=== PATIENT | female | born 1960 | race Caucasian/White ===

== ENCOUNTER 2020-04-18 14:12 | Emergency (ER) | payer OTHER, SELFPAY ==
[~2020-04-18] VITALS: Ht 162.6 cm; Wt 81.6 kg
[~2020-04-18 14:12] MED LIST: FLO44 IH; FLUO-387 PO; GABA300C PO; IBUP-2213 PO; OMEP40EC24 PO; TRAZ-343 PO
--- NOTE | 2020-04-18 14:24 | NUR ---
PT TAKEN TO BED 9.
[2020-04-18 14:26] VITALS: BP 155/77
--- NOTE | 2020-04-18 14:55 | NUR ---
IMAGING AT BED SIDE.
--- NOTE | 2020-04-18 14:56 | NUR ---
59 Y/O F C/O CHEST PAIN AND PRESSURE THAT RADIATES TO L ARM. 7/10 SHARP PAIN ACCOMPANIED BY SOB, NO COUGH. WHEN WALKING, SHE STATES SHE FEELS EASILY FATIGUED. NO N&V. HAS SLIGHT HEADACHE. MED HX OF ASTHMA. NKA. TAKES ACETAMINOPHEN 500 MG 1 PM PRN AND SEVERE CONGESTION MEDS OCT RX. PT TESTED POSTIVE FOR COVID 3 WEEKS AGO.
--- NOTE | 2020-04-18 15:03 | NUR ---
RT AT BEDSIDE COLLECTING ABGS. SWABBED FOR INFLUENZA A & B ANTIGEN, SENT TO LAB.
[2020-04-18 15:06] LABS: BASOPHILS % (AUTO) 0.4 % (0.0-2.0); EOSINOPHILS # (AUTO) 0.1 K/uL (0-0.4); EOSINOPHILS % (AUTO) 1.1 % (0.0-4.0); HEMATOCRIT 40.2 % (36-48); HEMOGLOBIN 13.3 g/dL (12.0-16.0); LYMPHOCYTES # (AUTO) 1.8 K/uL (2.5-16.5); LYMPHOCYTES % (AUTO) 23.7 % (20.5-51.1); MEAN CORPUSCULAR HEMOGLOBIN 29 pg (27-31); MEAN CORPUSCULAR HGB CONC 33 g/dL (33-37); MEAN CORPUSCULAR VOLUME 87.7 fL (80-94); MONOCYTES # (AUTO) 0.8 K/uL (0.8-1.0); MONOCYTES % (AUTO) 9.7 % (1.7-9.3); NEUTROPHILS % (AUTO) 65.1 % (42.2-75.2); PLATELET COUNT (AUTO) 267 K/uL (140-450); RED BLOOD CELL COUNT(AUTO) 4.59 MIL/uL (4.20-5.40); WHITE BLOOD COUNT (AUTO) 7.7 K/uL (4.8-10.8)
[2020-04-18 15:20] LABS: C-REACTIVE PROTEIN QUANT 0.8 mg/dL (0.0-0.9)
[2020-04-18 15:25] LABS: ALBUMIN 3.7 g/dL (3.4-5.0); ANION GAP 13.3 (8-16); CARBON DIOXIDE 26.3 mmol/L (21-32); CREATININE 0.7 mg/dL (0.6-1.3); FIBRINOGEN 371 mg/dL (200-400); POTASSIUM 3.6 mmol/L (3.5-5.1); PROTHROMBIN TIME 9.7 secs (10.8-13.4); TOTAL BILIRUBIN 0.3 mg/dL (0.0-1.0)
[2020-04-18 15:26] LABS: LACTATE DEHYDROGENASE 188 U/L (81-234)
--- NOTE | 2020-04-18 15:32 | NUR ---
URINE COLLECTED VOID VIA BEDCOMMODE , SENT TO LAB.
[2020-04-18 15:46] LABS: APPEARANCE,URINE CLEAR (CLEAR); BILIRUBIN,URINE NEGATIVE (NEGATIVE); BLOOD, URINE NEGATIVE (NEGATIVE); COLOR,URINE ORANGE (YELLOW); LEUKOCYTE ESTERASE ,URINE NEGATIVE (NEGATIVE); NITRITE, URINE NEGATIVE (NEGATIVE); PH,URINE 6.5 (5.0-9.0); UGLUCOSE NEGATIVE (NEGATIVE)
[2020-04-18 16:00] LABS: D-DIMER < 100 ng/ml (0-400)
--- NOTE | 2020-04-18 19:11 | NUR ---
REPORT RECEIVED FROM LINDSEY RANDLE
[2020-04-18 20:20] VITALS: BP 113/72
--- NOTE | 2020-04-18 20:20 | NUR ---
Patient discharged with v/s stable. Written and verbal after care instructions given and explained. Patient verbalized understanding. Ambulatory with steady gait. All questions addressed prior to discharge. Advised to follow up with PMD.
== END 2020-04-18 20:20 | disposition home or self-care (01) ==
LOC: MED 14:12
DX: U07.1 COVID-19 (principal); R07.9 Chest pain, unspecified; J45.909 Unspecified asthma, uncomplicated; Z98.890 Other specified postprocedural states; Z79.899 Other long term (current) drug therapy
CPT/HCPCS: 36415; 71045; 80053; 81003; 82550; 82728; 83605; 83615; 83880; 84484; 85025; 85379; 85384; 85610; 85730; 86140; 87040; 87804; 93005; 99285

== ENCOUNTER 2022-12-16 10:43 | Observation (INO) | payer OTHER ==
[~2022-12-16] VITALS: Ht 162.6 cm; Wt 81.6 kg
[2022-12-16 10:54] VITALS: BP 134/80; PULSE 64; RESP 18; TEMP 98; O2SAT 98
[2022-12-16] MEDS ORDERED: MORPHINE SULFATE 4 MG/ML SYR IM ONE (12:50)
[2022-12-16 13:30] LABS: BASOPHILS % (AUTO) 0.6 % (0.0-2.0); EOSINOPHILS # (AUTO) 0.1 K/uL (0-0.4); EOSINOPHILS % (AUTO) 0.8 % (0.0-4.0); HEMATOCRIT 38.6 % (36-48); HEMOGLOBIN 12.7 g/dL (12.0-16.0); LYMPHOCYTES # (AUTO) 2.2 K/uL (2.5-16.5); LYMPHOCYTES % (AUTO) 31.6 % (20.5-51.1); MEAN CORPUSCULAR HEMOGLOBIN 29 pg (27-31); MEAN CORPUSCULAR HGB CONC 33 g/dL (33-37); MEAN CORPUSCULAR VOLUME 88.8 fL (80-94); MONOCYTES # (AUTO) 0.6 K/uL (0.8-1.0); MONOCYTES % (AUTO) 8.2 % (1.7-9.3); NEUTROPHILS % (AUTO) 58.8 % (42.2-75.2); PLATELET COUNT (AUTO) 206 K/uL (140-450); RED BLOOD CELL COUNT(AUTO) 4.34 MIL/uL (4.20-5.40); RED CELL DISTRIBUTION WIDTH 14.3 % (11.6-13.7); WHITE BLOOD COUNT (AUTO) 6.8 K/uL (4.8-10.8)
[2022-12-16 13:33] VITALS: O2SAT 98
[2022-12-16 13:54] LABS: ALBUMIN 3.8 g/dL (3.4-5.0); ANION GAP 11.6 (8-16); ASPARTATE AMINOTRANSFERASE 16 U/L (15-37); CALCIUM 8.6 mg/dL (8.5-10.1); CHLORIDE 107 mmol/L (98-107); CREATININE 0.7 mg/dL (0.6-1.3); GFR ARICAN-AMERICAN 109 mL/min (>90); GFR NON ARICAN-AMERICAN 90 mL/min (>90); GLUCOSE 91 mg/dL (74-106); POTASSIUM 3.6 mmol/L (3.5-5.1); SODIUM SERUM 141 mmol/L (136-145); UREA NITROGEN, BLOOD 12 mg/dL (7-18)
[2022-12-16 14:14] LABS: ALANINE AMINOTRANSFERASE 19 U/L (12-78); ALKALINE PHOSPHATASE 71 U/L (50-136); TOTAL BILIRUBIN 0.4 mg/dL (0.0-1.0); TOTAL PROTEIN, SERUM 7.1 g/dL (6.4-8.2)
[2022-12-16] MEDS ORDERED: TRAZ-343 PO (14:15)
[2022-12-16] MEDS ORDERED: IBUP-2213 PO (14:15)
[2022-12-16] MEDS ORDERED: HYDROcodone/APAP 5/325 MG 1 TAB TAB PO PRN (14:25)
[2022-12-16] MEDS ORDERED: MORPHINE SULFATE 4 MG/ML SYR IVP PRN (14:25)
[2022-12-16] MEDS ORDERED: POTASSIUM CHLORIDE 10 MEQ TABER PO PRN (14:25)
[2022-12-16] MEDS ORDERED: NACL 0.9% 1,000 ML IV SCH (14:25)
[2022-12-16] MEDS ORDERED: ACETAMINOPHEN 325 MG TAB PO PRN (14:25)
[2022-12-16] MEDS ORDERED: ONDANSETRON 4 MG/2 ML VIAL IVP PRN (14:25)
[2022-12-16] MEDS ORDERED: CYCL-711 PO (14:54)
[2022-12-16] MEDS ORDERED: METH4TAB1 PO (14:55)
[2022-12-16] MEDS ORDERED: AMOX1TAB15 PO (14:57)
[2022-12-16 15:03] VITALS: BP 123/79; PULSE 74; RESP 18; TEMP 97.4
[2022-12-16] MEDS ORDERED: CYCLOBENZAPRINE 10 MG TAB PO SCH (17:00)
[2022-12-16] MEDS ORDERED: KETOROLAC 30 MG/ML VIAL IVP SCH (18:00)
== END 2022-12-16 15:28 | disposition home or self-care (01) ==
LOC: MED 10:43 → MTU 14:23
PROVIDERS: ADMIT Student in an Organized Health Care Education/Training Program; ATTEND Student in an Organized Health Care Education/Training Program
DX: M48.061 Spinal stenosis, lumbar region without neurogenic claudication (principal); G99.2 Myelopathy in diseases classified elsewhere; I10 Essential (primary) hypertension; E11.9 Type 2 diabetes mellitus without complications; R27.0 Ataxia, unspecified; G62.9 Polyneuropathy, unspecified; J45.909 Unspecified asthma, uncomplicated; Z79.899 Other long term (current) drug therapy
CPT/HCPCS: 36415; 70450; 72125; 72128; 72131; 80053; 84484; 85025; 93005; 96372; 99285; G0378; J2270